=== PATIENT | male | born 1935 | race Caucasian/White ===

== ENCOUNTER → 2016-08-14 | Outpatient (CLI) | payer MEDICARE, OTHER ==
[~2016-08-14] MED LIST: ALLO300T PO; AMIO200T42 PO; ASPI-515 PO; ATOR10TA9 PO; CHOL100015 PO; DIAZ5TAB4 PO; FISH OIL OMEGA PO; LEFL20TA16 PO; LISI40TA PO; RIVA20TA PO; TEMA15CA6 PO; WARF7.5T6 PO-COUM; ZOLP10TA PO; amlodipine PO; aspirin PO; carvedilol PO; hydrocodone PO; lantus insulin SQ; multivitamin; novolog insulin SQ; omeprazole PO; vitamin B PO
== END | disposition home or self-care (01) ==
LOC: WOUND 09:00
PROVIDERS: ATTEND Physician Assistant
DX: T81.31XD Disruption of external operation (surgical) wound, not elsewhere classified, subsequent encounter (principal); E11.69 Type 2 diabetes mellitus with other specified complication; I10 Essential (primary) hypertension; K21.9 Gastro-esophageal reflux disease without esophagitis; E78.5 Hyperlipidemia, unspecified; M10.9 Gout, unspecified; I25.2 Old myocardial infarction; F41.9 Anxiety disorder, unspecified; I48.91 Unspecified atrial fibrillation; M19.90 Unspecified osteoarthritis, unspecified site; Z79.01 Long term (current) use of anticoagulants; Z95.0 Presence of cardiac pacemaker; Z86.73 Personal history of transient ischemic attack (TIA), and cerebral infarction without residual deficits; Y83.8 Other surgical procedures as the cause of abnormal reaction of the patient, or of later complication, without mention of misadventure at the time of the procedure
CPT/HCPCS: 97597

== ENCOUNTER → 2016-08-21 | Outpatient (CLI) | payer MEDICARE, OTHER | END | disposition home or self-care (01) | LOC: WOUND 08:54 | PROVIDERS: ATTEND Physician Assistant | DX: T81.31XD Disruption of external operation (surgical) wound, not elsewhere classified, subsequent encounter (principal); E11.69 Type 2 diabetes mellitus with other specified complication; Z79.01 Long term (current) use of anticoagulants; E11.22 Type 2 diabetes mellitus with diabetic chronic kidney disease; I12.9 Hypertensive chronic kidney disease with stage 1 through stage 4 chronic kidney disease, or unspecified chronic kidney disease; N18.3 Chronic kidney disease, stage 3 (moderate); Z95.0 Presence of cardiac pacemaker; K21.9 Gastro-esophageal reflux disease without esophagitis; E78.5 Hyperlipidemia, unspecified; M10.9 Gout, unspecified; F41.9 Anxiety disorder, unspecified; I48.91 Unspecified atrial fibrillation; Z86.718 Personal history of other venous thrombosis and embolism; I25.2 Old myocardial infarction; M19.90 Unspecified osteoarthritis, unspecified site; Y83.8 Other surgical procedures as the cause of abnormal reaction of the patient, or of later complication, without mention of misadventure at the time of the procedure | CPT/HCPCS: 97597; G0463; WOU0463 ==

== ENCOUNTER → 2016-08-26 | Outpatient (CLI) | payer MEDICARE, OTHER | END | disposition home or self-care (01) | LOC: WOUND 08:00 | PROVIDERS: ATTEND Surgery | DX: T81.31XD Disruption of external operation (surgical) wound, not elsewhere classified, subsequent encounter (principal); E11.22 Type 2 diabetes mellitus with diabetic chronic kidney disease; I12.9 Hypertensive chronic kidney disease with stage 1 through stage 4 chronic kidney disease, or unspecified chronic kidney disease; N18.3 Chronic kidney disease, stage 3 (moderate); K21.9 Gastro-esophageal reflux disease without esophagitis; E78.5 Hyperlipidemia, unspecified; M10.9 Gout, unspecified; M19.90 Unspecified osteoarthritis, unspecified site; F41.9 Anxiety disorder, unspecified; I25.2 Old myocardial infarction; I48.91 Unspecified atrial fibrillation; Z79.01 Long term (current) use of anticoagulants; Z95.0 Presence of cardiac pacemaker; Z86.73 Personal history of transient ischemic attack (TIA), and cerebral infarction without residual deficits; Y83.8 Other surgical procedures as the cause of abnormal reaction of the patient, or of later complication, without mention of misadventure at the time of the procedure | CPT/HCPCS: G0463; WOU0463 ==

== ENCOUNTER → 2016-09-14 | Outpatient (CLI) | payer MEDICARE, OTHER | END | disposition home or self-care (01) | LOC: WOUND 07:48 | PROVIDERS: ATTEND Physician Assistant | DX: T81.31XD Disruption of external operation (surgical) wound, not elsewhere classified, subsequent encounter (principal); E11.8 Type 2 diabetes mellitus with unspecified complications; L05.91 Pilonidal cyst without abscess; I10 Essential (primary) hypertension; E78.5 Hyperlipidemia, unspecified; K21.9 Gastro-esophageal reflux disease without esophagitis; M10.9 Gout, unspecified; I48.91 Unspecified atrial fibrillation; M19.90 Unspecified osteoarthritis, unspecified site; I25.2 Old myocardial infarction; Z95.1 Presence of aortocoronary bypass graft; Z79.01 Long term (current) use of anticoagulants; Z89.422 Acquired absence of other left toe(s); Z95.0 Presence of cardiac pacemaker; Z86.73 Personal history of transient ischemic attack (TIA), and cerebral infarction without residual deficits; Y83.8 Other surgical procedures as the cause of abnormal reaction of the patient, or of later complication, without mention of misadventure at the time of the procedure | CPT/HCPCS: 97597 ==

== ENCOUNTER → 2016-09-28 | Outpatient (CLI) | payer MEDICARE, OTHER | END | disposition home or self-care (01) | LOC: WOUND 08:54 | PROVIDERS: ATTEND Physician Assistant | DX: T81.31XD Disruption of external operation (surgical) wound, not elsewhere classified, subsequent encounter (principal); E11.22 Type 2 diabetes mellitus with diabetic chronic kidney disease; I12.9 Hypertensive chronic kidney disease with stage 1 through stage 4 chronic kidney disease, or unspecified chronic kidney disease; N18.3 Chronic kidney disease, stage 3 (moderate); L05.91 Pilonidal cyst without abscess; Z79.01 Long term (current) use of anticoagulants; Z95.0 Presence of cardiac pacemaker; K21.9 Gastro-esophageal reflux disease without esophagitis; E78.5 Hyperlipidemia, unspecified; G47.00 Insomnia, unspecified; M10.9 Gout, unspecified; F41.9 Anxiety disorder, unspecified; I48.91 Unspecified atrial fibrillation; M19.90 Unspecified osteoarthritis, unspecified site; Z86.73 Personal history of transient ischemic attack (TIA), and cerebral infarction without residual deficits; Z86.718 Personal history of other venous thrombosis and embolism; I25.2 Old myocardial infarction; Z89.422 Acquired absence of other left toe(s); Y83.8 Other surgical procedures as the cause of abnormal reaction of the patient, or of later complication, without mention of misadventure at the time of the procedure | CPT/HCPCS: G0463; WOU0463 ==

== ENCOUNTER 2018-02-28 17:10 | Emergency (ER) | payer MEDICARE, OTHER ==
[~2018-02-28] VITALS: Ht 180.3 cm; Wt 85.0 kg
[~2018-02-28 17:10] MED LIST changes: +WARF7.5T46 PO-COUM; -WARF7.5T6 PO-COUM
[2018-02-28 17:48] LABS: BASOPHILS # (AUTO) 0.03 x10^3/uL (0-0.1); BASOPHILS % (AUTO) 0 % (0-1); EOSINOPHILS # (AUTO) 0.04 x10^3/uL (0-0.4); EOSINOPHILS % (AUTO) 0 % (1-7); LYMPHOCYTES # (AUTO) 1.28 x10^3/uL (1-3.4); LYMPHOCYTES % (AUTO) 11 % (22-44); MD NO; MEAN CORPUSCULAR HEMOGLOBIN 32.1 pg (27.5-34.5); MEAN CORPUSCULAR HGB CONC 33.2 g/dL (33.2-36.2); MEAN CORPUSCULAR VOLUME 96.6 fL (81-97); MEAN PLATELET VOLUME 9.8 fL (7.4-10.4); MONOCYTES # (AUTO) 0.86 x10^3/uL (0.2-0.8); MONOCYTES % (AUTO) 7 % (2-9); NEUTROPHILS # (AUTO) 9.65 x10^3/uL (1.8-6.8); NEUTROPHILS % (AUTO) 81 % (42-75); PLATELET COUNT 173 x10^3/uL (130-400); RED BLOOD COUNT 4.84 x10^6/uL (4.38-5.82); RED CELL DISTRIBUTION WIDTH 15.7 % (9.4-14.8)
[2018-02-28 17:56] LABS: ALBUMIN 3.7 g/dL (3.4-5.0); ANION GAP 10 mmol/L (5-15); CALCIUM 8.9 mg/dL (8.5-10.1); CHLORIDE 107 mmol/L (98-107); CREATININE 1.63 mg/dL (0.7-1.3)
[2018-02-28 18:03] LABS: ALBUMIN 3.7 g/dL (3.4-5.0); BILIRUBIN, DIRECT 0.3 mg/dL (0.1-0.2)
[2018-02-28 18:05] LABS: BILIRUBIN,INDIRECT 0.9 mg/dL (0.0-2.0); BILIRUBIN,TOTAL 1.2 mg/dL (0.2-1.0); TOTAL PROTEIN 7.5 g/dL (6.4-8.2)
[2018-02-28 18:46] LABS: RAPID INFLUENZA A Negative (Negative); RAPID INFLUENZA B Negative (Negative)
[2018-02-28 19:27] VITALS: BP 117/79
[2018-02-28 19:36] LABS: MICROSCOPIC AUTO
[2018-02-28 19:37] LABS: CULTURE INDICATED? NO
[2018-02-28] MEDS ORDERED: SODIUM CHLORIDE 0.9%, 500ML IVBOLUS ONE (20:00)
== END 2018-02-28 20:31 | disposition home or self-care (01) ==
LOC: ED 18:09
DX: D72.829 Elevated white blood cell count, unspecified (principal); N28.9 Disorder of kidney and ureter, unspecified; E86.0 Dehydration; R50.9 Fever, unspecified
CPT/HCPCS: 36415; 71046; 80048; 80076; 81001; 85025; 87040; 87400; 93005; 96360; 99285; J7040; 82040

== ENCOUNTER → 2018-06-14 | Outpatient (CLI) | payer MEDICARE, OTHER | END | disposition home or self-care (01) | LOC: CARD 09:46 | PROVIDERS: ATTEND Internal Medicine Cardiovascular Disease | DX: I65.23 Occlusion and stenosis of bilateral carotid arteries (principal); I35.0 Nonrheumatic aortic (valve) stenosis; I42.9 Cardiomyopathy, unspecified; I25.10 Atherosclerotic heart disease of native coronary artery without angina pectoris; I10 Essential (primary) hypertension; Z95.5 Presence of coronary angioplasty implant and graft | CPT/HCPCS: 93017; 93350; 93880; J0461; J1250 ==

== ENCOUNTER 2018-06-22 10:40 | Day surgery (SDC) | payer MEDICARE, OTHER ==
[~2018-06-22] VITALS: Ht 180.3 cm; Wt 78.0 kg
[2018-06-22] MEDS ORDERED: LIDOCAINE-MPF 1%, 5ML ONE (11:39)
[2018-06-22] MEDS ORDERED: FENTANYL PF 100 MCG/2ML ONE (11:39)
[2018-06-22] MEDS ORDERED: VERAPAMIL 2.5 MG/ML, 2ML ONE (11:39)
[2018-06-22] MEDS ORDERED: MIDAZOLAM 1 MG/ML, 2ML ONE (11:39)
[2018-06-22] MEDS ORDERED: HEPARIN 1,000 UNITS/ML, 10ML ONE (11:39)
[2018-06-22] MEDS ORDERED: TEMA15CA PO (11:45)
[2018-06-22] MEDS ORDERED: TORS10TA4 PO (11:49)
[2018-06-22] MEDS ORDERED: SACU1TAB PO (11:54)
[2018-06-22] MEDS ORDERED: LATA2.5D3 EACHEYE (11:56)
[2018-06-22 11:57] VITALS: BP 110/78
[2018-06-22 12:13] LABS: BASOPHILS # (AUTO) 0.03 x10^3/uL (0-0.1); BASOPHILS % (AUTO) 0 % (0-1); EOSINOPHILS # (AUTO) 0.17 x10^3/uL (0-0.4); EOSINOPHILS % (AUTO) 2 % (1-7); LYMPHOCYTES % (AUTO) 25 % (22-44); MD NO; MEAN CORPUSCULAR HEMOGLOBIN 31.7 pg (27.5-34.5); MEAN CORPUSCULAR HGB CONC 33.2 g/dL (33.2-36.2); MEAN CORPUSCULAR VOLUME 95.7 fL (81-97); MEAN PLATELET VOLUME 10.2 fL (7.4-10.4); MONOCYTES # (AUTO) 0.62 x10^3/uL (0.2-0.8); MONOCYTES % (AUTO) 8 % (2-9); NEUTROPHILS # (AUTO) 4.74 x10^3/uL (1.8-6.8); NEUTROPHILS % (AUTO) 64 % (42-75); PLATELET COUNT 153 x10^3/uL (130-400); RED BLOOD COUNT 5.04 x10^6/uL (4.38-5.82); RED CELL DISTRIBUTION WIDTH 15.1 % (9.4-14.8)
[2018-06-22 12:24] LABS: ANION GAP 8 mmol/L (5-15); CALCIUM 9.2 mg/dL (8.5-10.1); CHLORIDE 109 mmol/L (98-107)
== END 2018-06-22 16:10 | disposition home or self-care (01) ==
LOC: CACL 10:40
PROVIDERS: ATTEND Internal Medicine Cardiovascular Disease
DX: I25.82 Chronic total occlusion of coronary artery (principal); I35.0 Nonrheumatic aortic (valve) stenosis; E78.2 Mixed hyperlipidemia; E11.319 Type 2 diabetes mellitus with unspecified diabetic retinopathy without macular edema; F32.9 Major depressive disorder, single episode, unspecified; I48.91 Unspecified atrial fibrillation; Z79.01 Long term (current) use of anticoagulants; Z86.73 Personal history of transient ischemic attack (TIA), and cerebral infarction without residual deficits; Z89.429 Acquired absence of other toe(s), unspecified side; Z79.84 Long term (current) use of oral hypoglycemic drugs; Z88.8 Allergy status to other drugs, medicaments and biological substances
CPT/HCPCS: 36415; 80048; 85025; 93455; 99156; 99157; C1769; C1894; J2250; J3010; Q9967; J1644

== ENCOUNTER 2018-06-28 07:42 | Inpatient (IN) | payer MEDICARE, OTHER ==
[~2018-06-28] VITALS: Ht 182.9 cm; Wt 90.5 kg
[~2018-06-28 07:42] MED LIST changes: +LATA2.5D3 EACHEYE; +SACU1TAB PO; +TEMA15CA PO; +TORS10TA4 PO
[2018-06-28] MEDS ORDERED: SODIUM CHLORIDE 0.9% 1,000 ML IV ONE (08:23)
[2018-06-28 08:25] VITALS: BP 97/69
[2018-06-28] MEDS ORDERED: CHLORHEXIDINE 15 ML UDC MM PRN (08:30)
[2018-06-28] MEDS ORDERED: ONDANSETRON 2MG/ML, 2ML IVPush PRN (08:30)
[2018-06-28] MEDS ORDERED: TIMO5DRO33 OP (08:42)
[2018-06-28] MEDS ORDERED: LATA7.5D OP (08:42)
[2018-06-28] MEDS ORDERED: WARF1TAB74 PO (08:44)
[2018-06-28] MEDS ORDERED: WARF2.5T32 PO (08:44)
[2018-06-28] MEDS ORDERED: INSU100V8 SQ (08:52)
[2018-06-28] MEDS ORDERED: CHOL2000 PO (08:52)
[2018-06-28] MEDS ORDERED: CARV12.52 PO (08:52)
[2018-06-28] MEDS ORDERED: NOVOLOG SC (08:53)
[2018-06-28 08:57] LABS: BASOPHILS # (AUTO) 0.03 x10^3/uL (0-0.1); BASOPHILS % (AUTO) 0 % (0-1); EOSINOPHILS # (AUTO) 0.18 x10^3/uL (0-0.4); EOSINOPHILS % (AUTO) 3 % (1-7); LYMPHOCYTES # (AUTO) 1.51 x10^3/uL (1-3.4); LYMPHOCYTES % (AUTO) 21 % (22-44); MD NO; MEAN CORPUSCULAR HEMOGLOBIN 31.7 pg (27.5-34.5); MEAN CORPUSCULAR HGB CONC 33.1 g/dL (33.2-36.2); MEAN CORPUSCULAR VOLUME 95.8 fL (81-97); MEAN PLATELET VOLUME 10.1 fL (7.4-10.4); MONOCYTES # (AUTO) 0.54 x10^3/uL (0.2-0.8); MONOCYTES % (AUTO) 8 % (2-9); NEUTROPHILS # (AUTO) 4.79 x10^3/uL (1.8-6.8); NEUTROPHILS % (AUTO) 68 % (42-75); PLATELET COUNT 181 x10^3/uL (130-400); RED BLOOD COUNT 4.79 x10^6/uL (4.38-5.82); RED CELL DISTRIBUTION WIDTH 15.1 % (9.4-14.8)
[2018-06-28] MEDS ORDERED: PLEASE ENTER HEIGHT AND WEIGHT MC SCH (09:00)
[2018-06-28 09:07] LABS: ALANINE AMINOTRANSFERASE 29 U/L (12-78); ALBUMIN 3.4 g/dL (3.4-5.0); ANION GAP 8 mmol/L (5-15); CALCIUM 9.1 mg/dL (8.5-10.1); CHLORIDE 110 mmol/L (98-107); CREATININE 1.57 mg/dL (0.7-1.3); INTERNATIONAL NORMALIZED RATIO 1.73 (0.93-1.1)
[2018-06-28 09:12] LABS: ALKALINE PHOSPHATASE 108 U/L (45-117); BILIRUBIN,TOTAL 0.5 mg/dL (0.2-1.0); TOTAL PROTEIN 7.1 g/dL (6.4-8.2)
[2018-06-28] MEDS ORDERED: FENTANYL PF 250 MCG/5ML ONE (09:20)
[2018-06-28] MEDS ORDERED: SUCCINYLCHOLINE 20 MG/ML, 10ML ONE (09:21)
[2018-06-28] MEDS ORDERED: ROCURONIUM 10MG/ML,5ML ONE (09:21)
[2018-06-28] MEDS ORDERED: PROPOFOL 10 MG/ML, 20ML ONE (09:21)
[2018-06-28] MEDS ORDERED: HEPARIN 1,000 UNITS/ML, 30ML ONE (09:21)
[2018-06-28] MEDS ORDERED: EPINEPHRINE 1 MG/ML, 1ML ONE (09:26)
[2018-06-28] MEDS ORDERED: ONDANSETRON 2MG/ML, 2ML ONE (09:26)
[2018-06-28] MEDS ORDERED: PHENYLEPHRINE 10 MG/ML ONE (09:26)
[2018-06-28] MEDS ORDERED: DEXAMETHASONE 4 MG/ML, 1ML ONE (09:26)
[2018-06-28] MEDS ORDERED: CEFAZOLIN 1,000 MG ONE (09:50)
[2018-06-28] MEDS ORDERED: PROTAMINE SULFATE 10 MG/ML, 5ML ONE ×2 (09:51→10:26)
[2018-06-28] MEDS ORDERED: ACETAMINOPHEN 325 MG TABLET PO PRN (11:00)
[2018-06-28] MEDS ORDERED: DEXTROSE 4 GM TAB.CHEW PO PRN (11:00)
[2018-06-28] MEDS: DIAZEPAM 5 MG TABLET PO SCH (11:00)
[2018-06-28] MEDS ORDERED: DEXTROSE 50%, 50ML SYRINGE IVPush PRN (11:00)
[2018-06-28] MEDS ORDERED: GLUCAGON 1 MG IM PRN (11:00)
[2018-06-28] MEDS ORDERED: LABETALOL 20 MG/4 ML IVPush PRN (11:00)
[2018-06-28] MEDS ORDERED: hydrALAzine 20 MG/ML, 1ML IVPush PRN (11:00)
[2018-06-28] MEDS: INSULIN REGULAR 100 UNITS/ML, 3ML VIAL SQ-INSULIN SCH ×2 (11:49→16:00)
[2018-06-28 17:51] VITALS: BP 120/66
[2018-06-28] MEDS ORDERED: WARFARIN 2.5 MG TABLET PO-COUM SCH (18:00)
[2018-06-28] MEDS: INSULIN LISPRO 100 UNITS/ML, PEN SQ-INSULIN SCH (18:06)
[2018-06-28] MEDS ORDERED: MELATONIN 3 MG TABLET PO PRN (20:30)
[2018-06-28 20:42] VITALS: BP 108/58
[2018-06-28] MEDS ORDERED: MELATONIN 3 MG TABLET ONE (20:42)
[2018-06-28] MEDS: SODIUM CHLORIDE FLUSH 10ML SYR IVF SCH (21:00)
[2018-06-28] MEDS ORDERED: INSULIN GLARGINE 100 UNITS/ML, PEN SQ-INSULIN SCH (21:00)
[2018-06-28] MEDS ORDERED: LATANOPROST OPHTH 0.005%, 2.5ML OP SCH (21:00)
[2018-06-28] MEDS: TEMAZEPAM 15 MG CAPSULE PO SCH ×2 (21:00→23:16)
[2018-06-28] MEDS ORDERED: ATORVASTATIN 10 MG TABLET PO SCH (21:00)
[2018-06-28] MEDS: CARVEDILOL 12.5 MG TABLET PO SCH (21:52)
[2018-06-28] MEDS: TIMOLOL EYE DROPS MC SCH (23:30)
[2018-06-29 00:07] VITALS: BP 104/64
[2018-06-29] MEDS: INSULIN LISPRO 100 UNITS/ML, PEN SQ-INSULIN SCH ×2 (00:12→09:21)
[2018-06-29 05:32] LABS: INTERNATIONAL NORMALIZED RATIO 1.51 (0.93-1.1); PROTHROMBIN TIME 15.8 Seconds (9.6-11.5)
[2018-06-29 05:40] LABS: BASOPHILS # (AUTO) 0.01 x10^3/uL (0-0.1); BASOPHILS % (AUTO) 0 % (0-1); EOSINOPHILS % (AUTO) 0 % (1-7); LYMPHOCYTES # (AUTO) 0.93 x10^3/uL (1-3.4); LYMPHOCYTES % (AUTO) 7 % (22-44); MD NO; MEAN CORPUSCULAR HEMOGLOBIN 32.1 pg (27.5-34.5); MEAN CORPUSCULAR HGB CONC 33.1 g/dL (33.2-36.2); MEAN PLATELET VOLUME 10.2 fL (7.4-10.4); MONOCYTES % (AUTO) 7 % (2-9); NEUTROPHILS # (AUTO) 12.08 x10^3/uL (1.8-6.8); NEUTROPHILS % (AUTO) 87 % (42-75); PLATELET COUNT 142 x10^3/uL (130-400); RED BLOOD COUNT 4.47 x10^6/uL (4.38-5.82); RED CELL DISTRIBUTION WIDTH 15.1 % (9.4-14.8)
[2018-06-29 05:42] LABS: ANION GAP 7 mmol/L (5-15); CALCIUM 8.5 mg/dL (8.5-10.1); CHLORIDE 109 mmol/L (98-107)
[2018-06-29 05:44] LABS: CREATININE 1.54 mg/dL (0.7-1.3)
[2018-06-29] MEDS: TIMOLOL EYE DROPS MC SCH (07:30)
[2018-06-29] MEDS ORDERED: TEMPLATE NON-FORMULARY MED. (Timolol Maleate 1 DROP) OP SCH (09:00)
[2018-06-29] MEDS: SODIUM CHLORIDE FLUSH 10ML SYR IVF SCH (09:00)
[2018-06-29] MEDS ORDERED: SACUBITRIL/VALSARTAN 24MG-26MG TAB PO SCH (09:00)
[2018-06-29] MEDS ORDERED: CHOLECALCIFEROL 1,000 UNIT TABLET PO SCH (09:00)
[2018-06-29] MEDS ORDERED: TEMAZEPAM 15 MG CAPSULE PO SCH (09:00)
[2018-06-29] MEDS ORDERED: TORSEMIDE 20 MG TABLET PO SCH (09:00)
[2018-06-29] MEDS ORDERED: CYANOCOBALAMIN 1,000 MCG TABLET PO SCH (09:00)
[2018-06-29] MEDS: CARVEDILOL 12.5 MG TABLET PO SCH (09:25)
[2018-06-29 10:43] VITALS: BP 116/68
[2018-06-29] MEDS: DIAZEPAM 5 MG TABLET PO SCH (11:00)
[2018-06-30] MEDS ORDERED: WARFARIN 2.5 MG TABLET PO-COUM SCH (18:00)
[2018-06-30] MEDS ORDERED: WARFARIN 1 MG TABLET PO-COUM SCH (18:00)
[2018-07-12] MEDS ORDERED: POTASSIUM PO (11:45)
[2018-07-12] MEDS ORDERED: ATOR20TA37 PO (11:45)
[2018-07-12] MEDS ORDERED: MELA1TAB22 PO (11:45)
[2018-07-12] MEDS ORDERED: POTA20TA14 PO (14:14)
[2018-07-12] MEDS ORDERED: INSU100C5 SQ-INSULIN (14:14)
[2018-07-12] MEDS ORDERED: MULT-658 PO (14:14)
[2018-07-12] MEDS ORDERED: MELA1TAB6 PO (14:14)
[2018-07-12] MEDS ORDERED: OMEP-110 PO (14:14)
== END 2018-06-29 14:32 | disposition home or self-care (01) | DRG 266 ==
LOC: ORIP 07:42 → CCU 10:49 → 5SO 17:41
PROVIDERS: ADMIT Internal Medicine Cardiovascular Disease; ATTEND Internal Medicine Cardiovascular Disease
PROC: B246ZZ4 Ultrasonography of Right and Left Heart, Transesophageal (ICD-10-PCS; 2018-06-28)
PROC: 03HY32Z Insertion of Monitoring Device into Upper Artery, Percutaneous Approach (ICD-10-PCS; 2018-06-28)
PROC: 02RF38Z Replacement of Aortic Valve with Zooplastic Tissue, Percutaneous Approach (ICD-10-PCS; principal; 2018-06-28 10:00)
DX: I35.0 Nonrheumatic aortic (valve) stenosis (principal); Z00.6 Encounter for examination for normal comparison and control in clinical research program; I50.33 Acute on chronic diastolic (congestive) heart failure; D68.69 Other thrombophilia; I13.0 Hypertensive heart and chronic kidney disease with heart failure and stage 1 through stage 4 chronic kidney disease, or unspecified chronic kidney disease; E11.22 Type 2 diabetes mellitus with diabetic chronic kidney disease; I25.10 Atherosclerotic heart disease of native coronary artery without angina pectoris; I25.5 Ischemic cardiomyopathy; I48.91 Unspecified atrial fibrillation; F32.9 Major depressive disorder, single episode, unspecified; F41.9 Anxiety disorder, unspecified; E11.42 Type 2 diabetes mellitus with diabetic polyneuropathy; N18.9 Chronic kidney disease, unspecified; M10.9 Gout, unspecified; E78.1 Pure hyperglyceridemia; E78.00 Pure hypercholesterolemia, unspecified; M06.9 Rheumatoid arthritis, unspecified; Z79.4 Long term (current) use of insulin; Z88.8 Allergy status to other drugs, medicaments and biological substances; Z86.73 Personal history of transient ischemic attack (TIA), and cerebral infarction without residual deficits; Z95.0 Presence of cardiac pacemaker; Z95.1 Presence of aortocoronary bypass graft; Z89.422 Acquired absence of other left toe(s); Z89.412 Acquired absence of left great toe
CPT/HCPCS: 33361; 36415; 80048; 80053; 82962; 83880; 85025; 85347; 85610; 85730; 86850; 86900; 86923; 87081; 93005; 93308; 93312; 93321; 93325; 93355; C1760; C1769; C1894; G0378; J0171; J0690; J1100; J1644; J1815; J2405; J2704; J2720; J3010; J0330; J0360; J2370; J3490; Q9967

== ENCOUNTER → 2020-05-28 | Outpatient (CLI) | payer MEDICARE ==
[~2020-05-28] MED LIST changes: +ATOR20TA37 PO; +CARV12.52 PO; +CHOL2000 PO; +ERTA1VIA4 IV; +HYDR-3240 PO; +INSU100C5 SQ-INSULIN; +INSU100V8 SQ; -LATA2.5D3 EACHEYE; +LATA2.5D4 EACHEYE; +LATA7.5D OP; +MELA1TAB22 PO; +MELA1TAB6 PO; +MULT-658 PO; +NOVOLOG SC; +OMEP-110 PO; +POTA20TA14 PO; +POTASSIUM PO; +TIMO5DRO33 OP; +WARF1TAB74 PO; +WARF2.5T32 PO
== END | disposition home or self-care (01) ==
LOC: CVU 06:50
PROVIDERS: ATTEND Internal Medicine Infectious Disease
DX: I73.9 Peripheral vascular disease, unspecified (principal); I87.2 Venous insufficiency (chronic) (peripheral)
CPT/HCPCS: 93922; 93926